=== PATIENT | female | born 1950 | race Caucasian/White ===

== ENCOUNTER → 2019-07-24 | Outpatient (CLI) | payer MEDICARE, OTHER ==
--- NOTE | 2019-07-24 11:19 | CARD ---
MR#: [id number] Date of Study: 07/24/2019 Ordering Physician: MARY BETH OSULLIVAN, Referring Physician: MARY BETH OSULLIVAN Tech: Mauricio Browne [facility] APPROVED REPORT EXAM: Two-dimensional and M-mode echocardiogram with Doppler and color Doppler. Other Information Quality : GoodHR: 65bpm INDICATION Peripheral Edema Hypertension/HCVD 2D DIMENSIONS Left Atrium(2D)3.8 (1.6-4.0cm)IVSd1.0 (0.7-1.1cm) Aortic Root(2D)2.9 (2.0-3.7cm)LVDd4.5 (3.9-5.9cm) PWd0.9 (0.7-1.1cm)LVDs3.5 (2.5-4.0cm) FS (%) 23.6 %SV44.7 ml LVEF(%)47.2 (>50%) Aortic Valve LVOT Peak Pk.96.5cm/s Mitral Valve MV E Masgebvv62.0cm/sMV DECEL YIUK459so MV A Mzqteboh993.2cm/sE/A Ratio0.6 MV A Pdxfwkgb518ra Pulmonary Valve PV Peak Gdzrlasb26.4cm/s Tricuspid Valve TR P. Mrdohflx814mr/sRAP PXLZKPMB4xiPo TR Peak Gr.25arKtQKBQ46hyTa Pulmonary Vein S1 Wemrjtht01.1cm/sD2 Knulpbod65.9cm/s PVa hvncocts792uhwq LEFT VENTRICLE The left ventricle is normal size. There is normal left ventricular wall thickness. The left ventricu lar ejection fraction is within the lower limits of normal range. The Ejection Fraction is 50%. Septa l motion suggestive of conduction defect. Mild global hypokinesis. Transmitral Doppler flow pattern i s Grade I-abnormal relaxation pattern. RIGHT VENTRICLE The right ventricle is normal size. There is normal right ventricular wall thickness. The right ventr icular systolic function is normal. ATRIA The left atrium size is normal. The right atrium size is normal. The interatrial septum is intact wit h no evidence for an atrial septal defect or patent foramen ovale as noted on 2-D or Doppler imaging. AORTIC VALVE The aortic valve is normal in structure and function. No aortic regurgitation is present. There is no aortic valvular stenosis. There is no aortic valvular vegetation. MITRAL VALVE The mitral valve is normal in structure and function. There is no evidence of mitral valve prolapse. There is no mitral valve stenosis. There is mild mitral valve regurgitation noted. TRICUSPID VALVE The tricuspid valve is normal in structure and function. Doppler and Color Flow revealed mild tricusp id regurgitation with PAP of 28 mmHg. There is no tricuspid valve prolapse or vegetation. There is no tricuspid valve stenosis. PULMONIC VALVE Doppler and Color Flow revealed mild pulmonic valvular regurgitation. GREAT VESSELS The aortic root is normal in size. The ascending aorta is normal in size. The IVC is normal in size a nd collapses >50% with inspiration. PERICARDIAL EFFUSION There is no pleural effusion. The pericardium appears normal. Critical Notification Critical Value: No <Conclusion> The left ventricular ejection fraction is within the lower limits of normal range. The Ejection Fract ion is 50%. Septal motion suggestive of conduction defect. Mild global hypokinesis. Signed by : Caio Taylor, Electronically Approved : 07/24/2019 11:19:05
--- NOTE | 2019-07-24 13:30 | RAD ---
MR#: [id number] Date of Study: 07/24/2019 Ordering Physician: MARY BETH OSULLIVAN, Referring Physician: MARY BETH OSULLIVAN, Tech: Ghazala Maynard RVT,STEPHANE APPROVED REPORT Patient Location : OUT-PATIENT Indications Lower Extremity Edema : Deep System Deep Venous Thrombosis present : No Greater Saphenous Veins (GSV) Significant venous relux noted in the RIGHT GSV at the following levels : Superficial Femoral Junctio n, Proximal Thigh, Distal Thigh, Proximal Calf Findings Grayscale images of the right saphenofemoral junctions are grossly unremarkable. The right great saphenous vein measures 5.3 mm with a maximum reflux time of 3.8 seconds. There are 2 calf perforators at approximately 14 cmm up and 28 cm up which also are notable for reflu x with 1.5 seconds and measures approximately 3 mm in diameter. Right lesser saphenous vein was not well visualized. Critical Notification Critical Value: No <Conclusion> 1. Positive for reflux in the right great saphenous vein Signed by : Caio Taylor, Electronically Approved : 07/24/2019 13:30:18
--- NOTE | 2019-07-24 13:31 | RAD ---
MR#: [id number] Date of Study: 07/24/2019 Ordering Physician: MARY BETH OSULLIVAN, Referring Physician: MARY BETH OSULLIVAN, Tech: Ghazala Maynard RVT,STEPHANE APPROVED REPORT Right Lower Extremity Venous Study for DVT Patient Location: OUT-PATIENT Indications Lower Extremity Edema: Vein Imaging (Right) CFV (R): Compressible SFJ (R): Compressible FEM (R): Compressible POP (R): Compressible DFV (R): Compressible PTV (R): Compressible GSV (R): Compressible Peroneals (R): Compressible Findings On the right the grayscale images of the common femoral, superficial femoral and popliteal veins do n ot demonstrate any evidence of thrombus and these veins appear to be compressible. The below-knee vei ns were not well visualized but grossly appear to be compressible. Spectral imaging and color Doppler do not reveal any evidence of obstruction to flow with normal respirophasic variation above the knee . Below the knee there is spontaneous flow noted. Critical Notification Critical Value: No <Conclusion> 1. Negative for DVT in the RLE Signed by : Caio Taylor, Electronically Approved : 07/24/2019 13:31:37
== END | disposition home or self-care (01) ==
LOC: ECHO 09:51
PROVIDERS: ATTEND Internal Medicine Cardiovascular Disease
DX: I08.8 Other rheumatic multiple valve diseases (principal); I10 Essential (primary) hypertension; R60.0 Localized edema
CPT/HCPCS: 93306; 93971

== ENCOUNTER → 2019-10-13 | Outpatient (CLI) | payer MEDICARE, OTHER ==
--- NOTE | 2019-10-13 14:46 | CARD ---
MR#: [id number] Date of Study: 10/13/2019 Ordering Physician: MARY BETH JAIME, Referring Physician: MARY BETH JAIME Tech: Darrius MAKI APPROVED REPORT Patient StatusOUT-PATIENT Supervisor [employer]: Darrius MAKI Procedure(s) performed: Endovenous VenaSeal ablation of the Right greater saphenous vein. INDICATION FOR PROCEDURE The indication(s) include : Symptomatic Chronic Venous Insufficiency with venous hypertension and inf lammation, lower extremity pain and edema. PROCEDURE NARRATIVE After explaining the risks, benefits and alternative options, informed consent was obtained from rayo ent. Patient was brought to the procedure suite and duplex ultrasound was used to map out the insuffi cient saphenous vein. The access site was determined and marked on the overlying skin. The depth and diameter of the vein (s) to be treated was documented. The patient was placed supine on the procedure table and the leg was prepped and draped using sterile technique. Ultrasound guidance was again used to localize the access site. 1% lidocaine was injected into the sk in and subcutaneous tissues for local anesthesia. Using ultrasound guidance, access was obtained in t he saphenous vein with a 19-gauge thin-walled needle followed by introduction of a short guidewire. T he intraluminal location was confirmed with ultrasound and a 7 Turkish 7 cm sheath was inserted into t he vein. A 0.035 inch guidewire from the Venaseal kit was then introduced and positioned at the saphe nofemoral junction using ultrasound guidance. The 80 cm 7 Turkish introducer sheath/dilator was positi oned 5 cm from the saphenofemoral junction. The guidewire and dilator were removed and the remaining sheath was flushed with sterile saline, with the syringe remaining in place prior to the next steps. The Cyanoacrylate adhesive was loaded into a 3 cc syringe that was then attached to the 5F delivery c athter and loaded on to the Dispenser gun.The catheter was primed precisely and this 'assembly' was i ntroduced through the 7 Turkish sheath and positioned 5 cm caudal to the saphenofemoral junction under ultrasound guidance. While applying compression cephalad to the cathter tip with the ultrasound velasco sducer, 0.10 cc of the VenaSeal adhesive was delivered into the vein by pulling the trigger of the [employer] reg gun. The catheter was pulled back 1 cm and another 0.10 cc of the adhesive was delivered foll owing which the catheter was pulled back 3 cm. Compression was applied over the vein for 3 minutes. T he catheter tip position was confirmed again using the ultrasound, 0.10 cc Venaseal adhesive delivere d, catheter pulled back 3 cm and compression applied for 30 seconds. These steps were repeated to tr eat the entire length of the incompetent vein. Following the last injection and compression sequence, the catheter and introducer sheath were pulled out from the access site. Hemostasis was achieved with manual compression and an adhesive bandage wa s applied to the incision. Ultrasound confirmed complete coaptation and closure of the treated segmen ts of the greater saphenous vein, and the absence of any DVT at the saphenofemoral junction. Treatmen t length was 30 cm. The drapes were removed and the patient cleaned and prepared for discharge. Patient tolerated the pro cedure well. There were no immediate complications. Postop ultrasound check scheduled for 48-72 hours and the patient was given written postop instructions. Signed by : Mary Beth Jaime, Electronically Approved : 10/13/2019 14:46:13
== END ==
LOC: VNUS 13:23
PROVIDERS: ATTEND Internal Medicine Cardiovascular Disease
DX: I87.321 Chronic venous hypertension (idiopathic) with inflammation of right lower extremity (principal)
CPT/HCPCS: 36482

== ENCOUNTER → 2019-10-14 | Outpatient (CLI) | payer MEDICARE, OTHER ==
--- NOTE | 2019-10-14 15:58 | RAD ---
EXAM: Right lower extremity venous Doppler. HISTORY: Right lower extremity lower extremity post ablation. COMPARISON: None. FINDINGS: Grayscale and Doppler analysis of the both lower extremity deep venous systems was performed with graded compression and augmentation. The common femoral, greater saphenous, superficial femoral, popliteal and calf veins were assessed. There is no evidence of deep venous thrombosis. The great saphenous vein from proximal thigh to the distal thigh is ablated. IMPRESSION: 1. No evidence of right lower extremity deep venous thrombosis status post greatest saphenous vein ablation.. Electronically signed by: Aicha Lorenzo MD (10/14/2019 3:56 PM) [id number]
== END | disposition home or self-care (01) ==
LOC: US 15:11
PROVIDERS: ATTEND Internal Medicine Cardiovascular Disease
DX: I87.2 Venous insufficiency (chronic) (peripheral) (principal)
CPT/HCPCS: 93971

== ENCOUNTER → 2020-10-27 | Outpatient (CLI) | payer MEDICARE, OTHER ==
--- NOTE | 2020-10-27 17:10 | KCIC ---
MRI study of the right hip without contrast Clinical indications: Right hamstring muscle strain and pain since July 2020. Pain is located in the ischial tuberosity area. Has had physical therapy. TECHNIQUE: Noncontrast MRI sequences of the right hip and proximal thigh was performed in all 3 plane s. In additional STIR sagittal sequence of the entire right thigh and femur was performed. FINDINGS: No marrow infiltrative process or T2 bone marrow edema or fracture is evident. No avascular necrosis of the right femoral head is seen. There is subchondral bone marrow edema of the superior-l ateral aspect of the acetabulum. There is chondromalacia of the superior lateral aspect of the right hip joint here. There is mild degenerative spurring of the right femoral head. Small right knee joint effusion is seen. No loose body is evident. The acetabular labrum appears intact and no paralabral g anglion cyst is seen. There is fluid and edema involving the anterior portion of the conjoined hamstring tendon. This invol ves the semimembranosus tendon portion of the conjoined hamstring tendon. This tendon is intact. Ther efore, there is no tear of the conjoined hamstring tendon. The finding is consistent with tendinosis and a grade 1 tendon strain. No intramuscular edema of the rest of the hamstring is seen within the t high. No ischial tuberosity bursitis is seen. The gluteal tendons are intact. There is tendinosis of the gluteus asiya tendon at the level of the greater trochanter. No greater trochanteric bursitis i s seen. The iliopsoas tendon is intact. No iliopsoas bursitis is seen. No other muscle edema is seen. IMPRESSION: Grade 1 tendon strain of the conjoined hamstring tendon anteriorly involving the semimemb ranosus tendon portion of the hamstring. There is edema and fluid present here but no defect or high- grade partial tear or complete tear of the conjoined hamstring tendon is seen. There is no bone marro w edema of the ischial tuberosity at the insertion of the conjoined hamstring tendon. Gluteus asiya tendinosis at the level of the greater trochanter without underlying greater trochant pee bursitis. 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 Electronically signed by: Jay Rosa MD (10/27/2020 5:07 PM) [id number]
== END ==
LOC: KCIC MRI 14:59
PROVIDERS: ATTEND Orthopaedic Surgery
DX: S76.311D Strain of muscle, fascia and tendon of the posterior muscle group at thigh level, right thigh, subsequent encounter (principal); X58.XXXD Exposure to other specified factors, subsequent encounter
CPT/HCPCS: 73718

== ENCOUNTER → 2021-09-14 | Outpatient (CLI) | payer MEDICARE, OTHER ==
--- NOTE | 2021-09-14 12:42 | KCIC ---
XR SHOULDER_LEFT 2+ VIEWS DATE: 09/14/2021 10:38 AM INDICATION: Left shoulder pain. Pain when reaching across body. / History: COMPARISON: None. FINDINGS: Bones: There is no evidence of acute fracture or dislocation. Joints: The joint spaces are normal. The acromiohumeral distance is not narrowed. Miscellaneous: No abnormal soft tissue calcifications in the shoulder. IMPRESSION: Normal osseous structures Electronically signed by: Elgin Hubbard MD (09/14/2021 12:40 PM) [id number]
== END ==
LOC: KCIC 10:31
PROVIDERS: ATTEND Family Medicine
DX: M25.512 Pain in left shoulder (principal)
CPT/HCPCS: 73030